=== PATIENT | male | born 1960 | race Caucasian/White ===

== ENCOUNTER 2018-05-20 07:00 | Day surgery (SDC) | payer BC ==
[~2018-05-20 07:00] MED LIST: ACETAMINOPHEN 1,000 MG/100 ML BTL IV ONE; CEFAZOLIN 2 Gram 2 GM/50 ML BAG IVPB ONE
[2018-05-20] MEDS ORDERED: BUPIVACAINE 0.25% W/EPI MPF 30ML VIAL IVP ONE (07:01)
[2018-05-20] MEDS ORDERED: 0.9 % SODIUM CHLORIDE 10 ML VIAL IVP ONE (07:01)
[2018-05-20] MEDS ORDERED: PROPOFOL 10 MG/ML VIAL IV ONE (07:01)
[2018-05-20] MEDS ORDERED: LIDOCAINE 2% MDV (20MG/ML) 20ML VIAL IV ONE (07:01)
[2018-05-20] MEDS ORDERED: DEXAMETHASONE 4 MG/ML 1ML VIAL IVP ONE ×2 (07:01)
[2018-05-20] MEDS ORDERED: ROPIVACAINE HCL (NAROPIN) /PF 5MG/ML 20ML VIAL IV ONE (07:01)
[2018-05-20] MEDS ORDERED: HYDROCODONE/APAP 5/325MG TABLET PO ONE (07:01)
[2018-05-20] MEDS ORDERED: MIDAZOLAM HCL 2MG/2ML VIAL IV ONE (07:01)
[2018-05-20] MEDS ORDERED: FENTANYL PF 100MCG/2ML VIAL IV ONE (07:01)
[2018-05-20] MEDS ORDERED: ONDANSETRON HCL IV 4 MG/2 ML VIAL IVP ONE (07:01)
[2018-05-20] MEDS ORDERED: SEVOFLURANE 250 ML INH ONE (07:01)
[2018-05-20] MEDS ORDERED: RINGERS SOLUTION,LACTATED 1,000 ML IV ONE (09:06)
--- NOTE | 2018-05-20 11:40 | Operative Note ---
DATE OF SURGERY: 05/20/2018 Surgeon: David Braden DO PREOPERATIVE DIAGNOSIS: Reducible left inguinal hernia. POSTOPERATIVE DIAGNOSIS: Reducible left inguinal hernia, indirect. OPERATION: Open left inguinal hernia repair with mesh. Indication: The patient is a 50-year-old male who presented with pain and bulging in his left inguinal region. We did discuss repair. Risks, benefits, and alternatives were discussed. Risks include but are not limited to bleeding, infection, acute or chronic pain, recurrence. He understood this fully. Thereafter, consent was signed and questions answered. PROCEDURE: He was taken to the operating room and placed in a supine position. General anesthesia was administered per the department of anesthesia. The patient's left inguinal region was shaved of hair and prepped and draped in a sterile fashion. The patient had undergone preoperative block per the department of anesthesia. He also received preoperative antibiotic as well as DVT prophylaxis. At this time, the oblique region was anesthetized with a total of 4 mL of 0.25% Sensorcaine with epinephrine. A 4 cm incision was made. This was carried down through subcutaneous tissue to the aponeurosis of the external oblique. This was enlarged through the superficial inguinal ring. Care was taken not to injure the underlying ilioinguinal nerve or spermatic cord. Superior and inferior flaps were developed. Garrison was placed on the spermatic cord and dissected free from the underlying transversalis fascia. This was retracted laterally with a Keely drain. Floor was inspected and noted to be free of any direct herniation. At this time, cremasteric fibers were taken down. The patient had a moderate-size cord lipoma as well as a sliding broad-based indirect hernia. High ligation was done of the cord lipoma. The indirect hernia sac was reduced, and a large plug was placed to the deep inguinal ring. This was sutured in place with 2-0 Vicryl. At this time, a left-sided ProGrip mesh was obtained. This was placed covering the floor of the inguinal canal. We had excellent overlap of the pubic tubercle. The mesh was pre-notched to accompany the deep inguinal ring. Stitches went at the level of pubic tubercle, the second portion of the inguinal ligament, and the internal oblique aponeurosis. At this time, the internal oblique aponeurosis was closed with the spermatic cord with 2-0 Vicryl, the Rufino layer was closed with 3-0 Vicryl, and skin was closed with 4-0 Vicryl. Steri-Strips applied. The patient was taken to the recovery room in satisfactory condition. FINDINGS ON SURGERY: Left inguinal hernia, indirect, with accompanying cord lipoma, repaired as above. CC: EJ SHELTON MD, FACP MTDD
== END 2018-05-20 10:08 | disposition home or self-care (01) ==
LOC: SUR 07:00
PROVIDERS: ATTEND Surgery
DX: K40.90 Unilateral inguinal hernia, without obstruction or gangrene, not specified as recurrent (principal); I10 Essential (primary) hypertension; E78.00 Pure hypercholesterolemia, unspecified
CPT/HCPCS: 76942; J2405; J7120

== ENCOUNTER 2018-11-18 11:05 | Day surgery (SDC) | payer BC ==
[2018-11-18] MEDS ORDERED: LIDOCAINE 2% MDV (20MG/ML) 20ML VIAL IV ONE (11:06)
[2018-11-18] MEDS ORDERED: PROPOFOL 10 MG/ML VIAL IV ONE (11:06)
--- NOTE | 2018-11-20 08:20 | Operative Note ---
OPERATION: COLONOSCOPY to the cecum and terminal ileum with cold snare polypectomy x1 and multiple biopsies. 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 The patient has not had clinical symptoms for the past 25 years and has been taking no medications for possible inflammatory bowel disease. Polyps removed in the past have been hyperplastic as best I can tell from reviewing the records. He presents today for surveillance. His last examination was 2009. ANESTHESIA: Intravenous sedation was administered by the department of anesthesiology and included Diprivan titrated to effect. PROCEDURE: Following informed consent from this alert individual including a discussion of the risks and benefits of the procedure and an opportunity for the patient to ask questions, the patient was in the left lateral decubitus position. A digital rectal examination was performed. No abnormalities were noted. Following this, the Olympus [id number] video colonoscope was inserted into the rectum without resistance. The rectal mucosa initially had a normal appearance with normal folds and distensibility. The colonoscope was advanced up through the bowel to the level of the cecum without much difficulty. Throughout the bowel the mucosa appeared normal, the folds were normal, and the bowel was fairly well distensible. The appendiceal orifice was noted. The ileocecal valve was visualized. The colon preparation overall was good. The terminal ileum was cannulated for approximately 15 cm and found to be normal. From this point, the colonoscope was slowly withdrawn. Close visualization of the mucosa ensued upon withdrawal. No abnormalities were noted until the rectum was reached. In the mid rectum, there was a sessile 7-8 mm polyp noted. It was removed with cold snare polypectomy and suctioned through the colonoscope into a collection trap. There were tiny areas of edema of an edematous-appearing mucosa without obvious polyp formation and for this reason, multiple biopsies of the rectum were obtained. Retroflexion in the rectum was otherwise endoscopically normal. The instrument was straightened and withdrawn. The patient tolerated the procedure well and was returned to the recovery area in stable condition. IMPRESSION: 1. Normal terminal ileum. 2. A 7-8 mm flat sessile polyp noted in the mid rectum removed with cold snare polypectomy. 3. Multiple edematous areas in the rectum perhaps representing hyperplastic polyps. Multiple biopsies taken. RECOMMENDATIONS: Further recommendations will be forthcoming pending results of pathology obtained today. Followup also will be with Dr. Nicholson. As always, thank you for allowing me to participate in the care of your patient. ELLIE
== END 2018-11-18 13:26 | disposition home or self-care (01) ==
LOC: HOP 11:05
PROVIDERS: ATTEND Internal Medicine Gastroenterology
DX: Z12.11 Encounter for screening for malignant neoplasm of colon (principal); Z87.19 Personal history of other diseases of the digestive system; K62.1 Rectal polyp; I10 Essential (primary) hypertension; E78.00 Pure hypercholesterolemia, unspecified